=== PATIENT | male | born 1960 | race Caucasian/White ===

== ENCOUNTER 2018-11-25 05:20 | Day surgery (SDC) | payer BC ==
[2018-11-25] MEDS ORDERED: fentaNYL 100 MCG/2 ML SDV IV ONE ×3 (05:21→06:40)
[2018-11-25] MEDS ORDERED: Midazolam 1 MG/ML 2 ML SDV IV ONE ×3 (05:21→06:41)
[2018-11-25] MEDS ORDERED: Dextrose 5%-0.45% NaCl 1,000 ML IV SCH (06:00)
[2018-11-25] MEDS ORDERED: Midazolam 1 MG/ML 2 ML SDV ONE (06:13)
[2018-11-25] MEDS ORDERED: fentaNYL 100 MCG/2 ML SDV ONE (06:13)
--- NOTE | 2018-11-25 07:46 | OR ---
DATE: 11/25/2018 PROCEDURE: Esophagogastroduodenoscopy, NBI, and multiple pinch biopsies. INSTRUMENT USED: [id number]-HQ190 Olympus video panendoscope. PREMEDICATIONS: No oral or topical anesthesia used. Fentanyl 100 mcg intravenous, Versed 2 mg intravenous. Nasal O2 cannula. The procedure was done under pulse oximetry, BP recording, and threat monitoring analyst. INDICATION: The patient with known Cote esophagus, having persistent throat discomfort unexplained and not responsive to high-dose PPI. Esophagogastroduodenoscopy is performed for detection of any active erosive lesions, biopsies to be obtained from Cote mucosa to see any evidence of dysplasia, endoscopic hemostasis therapy if needed. DESCRIPTION OF PROCEDURE: The scope was passed with ease. Adequate visualization of the esophagus was made from proximal to distal areas. No upper esophageal lesions identified. No distal esophageal stricture. No uphill or downhill esophageal varices. No Kisha-Tesfaye tear. No evidence of erosive esophagitis by [place] criteria. No esophageal polyp or tumor mass identified. Proximally encroaching pink columnar epithelium was noted at around 34 cm distal to the oral verge, NBI magnification views were obtained, photographs were taken. Four-quadrant biopsies were taken from the pink columnar epithelium at 34, 36, and 38 cm distal to the oral verge and sent for any histopathologic evidence of dysplasia. No proximal gastric varices noted. Gastric fundus examination by retroflexion showed no malignant lesions. Benign- appearing diminutive gastric fundus polyps were noted. No gastric ulcer, malignant mass, or vascular ectasia identified. Duodenal bulb showed no ulcer. Visualized second part of the duodenum was unremarkable. No bleeding was noted from any of the visualized areas at the completion of examination. IMPRESSION: 1. Cote esophagus. 2. Sliding hiatal hernia. 3. Diminutive gastric fundus polyps. The patient tolerated the procedure well. [facility] /[id number]
[2018-11-25 09:17] VITALS: BP 157/93
== END 2018-11-25 08:57 | disposition home or self-care (01) ==
LOC: DL.ENDO 05:20
PROVIDERS: ATTEND Internal Medicine Gastroenterology
DX: K20.9 Esophagitis, unspecified (principal); K22.70 Barrett's esophagus without dysplasia; K44.9 Diaphragmatic hernia without obstruction or gangrene; K21.9 Gastro-esophageal reflux disease without esophagitis; K31.7 Polyp of stomach and duodenum; E78.5 Hyperlipidemia, unspecified; R73.9 Hyperglycemia, unspecified; G47.33 Obstructive sleep apnea (adult) (pediatric); E66.09 Other obesity due to excess calories; Z68.44 Body mass index [BMI] 60.0-69.9, adult; Z98.890 Other specified postprocedural states; Z88.1 Allergy status to other antibiotic agents; Z88.8 Allergy status to other drugs, medicaments and biological substances
CPT/HCPCS: 43239; J2250; J3010; J7042